=== PATIENT | female | born 1960 ===

== ENCOUNTER 2017-03-01 13:04 | Day surgery (SDC) | payer BC ==
[2017-02-27 09:32] VITALS: BMI 29.5
[2017-03-01] MEDS ORDERED: Iodixanol 320 MG/ML 100 ML BOTTLE IV ONE (16:10)
[2017-03-01] MEDS ORDERED: Sodium Chloride 0.9% 1,000 ML IV ONE (18:25)
[2017-03-01 20:51] VITALS: BP 146/72; PULSE 92; RESP 10; TEMP 97.9; O2SAT 99
--- NOTE | 2017-03-04 07:22 | CARDCATH ---
PROCEDURE DATE: 03/01/2017 This is a 56-year-old woman with history of diabetes who had a positive Myoview stress test, underwent a left heart catheterization. Left heart catheterization was done from the right femoral artery. The right femoral artery was cleaned, draped. A #6 introducer sheath was inserted without a ny complication and manual pressure was used postcatheterization. Haroldo was used for the left, Amp latz for the right, and pigtail for LV angiogram. Left main is a normal artery. LAD proximally, there is a large tubular lesion, maximum about 70%. S ubsequently, the artery appears slightly ectatic and then subsequently there is a 90% lesion. The re st of the LAD is very atherosclerotic, very narrowed lumen up to the apex. The diagonals 1 and 2 are visible but very small arteries, very atherosclerotic. The circumflex artery is a large vessel, dom inant. There is some minor, less than 30%, lesions in the midsection. It also gives out the PDA. R ight coronary after takeoff becomes severely atherosclerotic and is nondominant, and the acute margin al has also about 60% lesion. The LV gram shows a severely dyskinetic apex. The rest of the ventric le appears to be willi well with EF of about 50%. FINAL CONCLUSION: Will discuss this with interventional cardiology for possible try angioplasty of t he left anterior descending lesion and then plan further. Simón Nobles MD cc: [id number] TT: 03/04/2017 07:22:00 radha
== END 2017-03-01 20:55 | disposition home or self-care (01) ==
LOC: C.CATHLAB 13:04
PROVIDERS: ATTEND Internal Medicine Cardiovascular Disease
DX: I25.10 Atherosclerotic heart disease of native coronary artery without angina pectoris (principal); E11.9 Type 2 diabetes mellitus without complications
CPT/HCPCS: 82948; 93458; C1729; C1769; C1887; J7040; Q9967